=== PATIENT | male | born 1990 | race Caucasian/White ===

== ENCOUNTER 2020-11-23 19:12 | Emergency (ER) | payer MEDICAID, OTHER ==
[~2020-11-23] VITALS: Ht 190.5 cm; Wt 93.9 kg
[2020-11-23] MEDS ORDERED: KETOROLAC TROMETHAMINE INJ 30 MG/ML VIAL ONE (19:49)
[2020-11-23] MEDS ORDERED: ONDANSETRON HCL/PF 4 MG/2 ML VIAL ONE (19:50)
--- NOTE | 2020-11-23 19:58 | NUR ---
pt bibs c/o chest pain 05/25, tachycardic, with fever 102.3 pt came in s/p b12 shot. c/o dehydration and nausea. pt on monitor. phlembotomist at bedside. Addendum: 11/23/20 at 2209 by STORMY Amendment undone in EDM - 11/23/20 at 2210 by STORMY PER VERBAL ORDER, JAMES GIBSON ANOTHER BOLUS LITER OF NORMAL SALINE IV CARRIED OUT
[2020-11-23] MEDS ORDERED: IV NS 0.9% 1,000 ML BAG IV ONE (20:00)
[2020-11-23] MEDS ORDERED: ONDANSETRON HCL/PF 4 MG/2 ML VIAL IVP ONE (20:00)
[2020-11-23] MEDS ORDERED: KETOROLAC TROMETHAMINE INJ 30 MG/ML VIAL IV ONE (20:00)
--- NOTE | 2020-11-23 20:15 | NUR ---
iv line established. left hand #22 iv fluids running as ordered.
[2020-11-23 20:22] LABS: BASOPHILS % (AUTO) 0.1 % (0.0-2.0); EOSINOPHILS % (AUTO) 0.6 % (0.0-6.0); HEMATOCRIT 46 % (39-51); HEMOGLOBIN 16.4 g/dL (13.5-17.5); LYMPHOCYTES # (AUTO) 0.5 K/uL (0.8-4.8); LYMPHOCYTES % (AUTO) 7.7 % (20.0-44.0); MEAN CORPUSCULAR HGB CONC 36 g/dl (31.0-36.0); MEAN CORPUSCULAR VOLUME 91 fL (80-96); MONOCYTES # (AUTO) 0.6 K/uL (0.1-1.30); MONOCYTES % (AUTO) 8.7 % (2.0-12.0); NEUTROPHILS # (AUTO) 5.5 K/uL (1.8-8.9); NEUTROPHILS % (AUTO) 82.9 % (43.0-81.0); PLATELET COUNT (AUTO) 165 K/uL (150-450); RED BLOOD CELL COUNT(AUTO) 5.05 MIL/uL (4.5-6.0); WHITE BLOOD COUNT (AUTO) 6.6 K/uL (4.3-11.0)
[2020-11-23] MEDS ORDERED: ACETAMINOPHEN ES 500 MG TABLET PO ONE (20:30)
[2020-11-23] MEDS ORDERED: ACETAMINOPHEN ES 500 MG TABLET ONE (20:31)
--- NOTE | 2020-11-23 20:37 | NUR ---
all medications administered as ordered
[2020-11-23 20:53] LABS: CALCIUM, SERUM 9.3 mg/dL (8.5-10.1); CARBON DIOXIDE 24 mmol/L (21-32); CHLORIDE 101 mmol/L (98-107); CREATININE 1.4 mg/dL (0.6-1.3); GLUCOSE 108 mg/dL (74-106); POTASSIUM 3.1 mmol/L (3.5-5.1); SODIUM SERUM 138 mmol/L (136-145); UREA NITROGEN, BLOOD 13 mg/dL (7-18)
--- NOTE | 2020-11-23 20:59 | NUR ---
PATIENT UNABLE TO PROVIDE URINE SAMPLE AT THIS TIME.
[2020-11-23 21:00] LABS: ALANINE AMINOTRANSFERASE 32 U/L (12-78); ALBUMIN 4.1 g/dL (3.4-5.0); ALKALINE PHOSPHATASE 77 U/L (46-116); ASPARTATE AMINOTRANSFERASE 55 U/L (15-37); BILIRUBIN,DIRECT 0.2 mg/dL (0.0-0.2); BILIRUBIN,TOTAL 1.1 mg/dL (0.2-1.0); LIPASE 185 U/L (73-393); TOTAL PROTEIN, SERUM 7.4 g/dL (6.4-8.2)
[2020-11-23 21:01] LABS: ALCOHOL, BLOOD < 3 mg/dL (0-0)
[2020-11-23] MEDS ORDERED: POTASSIUM CHLORIDE 20 MEQ TAB.PRT.SR PO ONE ×2 (21:15→21:30)
--- NOTE | 2020-11-23 21:35 | NUR ---
FLOUR BROKER AT BEDSIDE.
[2020-11-23 21:47] LABS: THYROID STIMULATING HORMONE 1.095 uIU/mL (0.358-3.74)
[2020-11-23 22:04] LABS: BILIRUBIN,URINE Negative (NEGATIVE); COLOR,URINE YELLOW (YELLOW); LEUKOCYTE ESTERASE ,URINE Negative (NEGATIVE); NITRITE, URINE Negative (NEGATIVE); PH,URINE 7.5 (5.0-8.0); PROTEIN,URINE Negative (NEGATIVE); UGLUCOSE Negative (NEGATIVE); UROBILINOGEN,URINE 0.2 EU/dL (0.2)
--- NOTE | 2020-11-23 22:10 | NUR ---
PER VERBAL ORDER, JAMES UMANZOR ADMIN ANOTHER BOLUS LITER OF NORMAL SALINE IV CARRIED OUT
[2020-11-23 22:20] LABS: BACTERIA,URINE Rare /HPF (None Seen); RBC,URINE NONE SEEN /HPF (0-2); SQUAMOUS EPITHELIAL CELL,UR Few /HPF (None Seen); WBC,URINE NONE SEEN /HPF (0-3)
[2020-11-23] MEDS ORDERED: IBUP-1955 PO (23:05)
[2020-11-23] MEDS ORDERED: IV NS 0.9% 1,000 ML IV ONE (23:30)
--- NOTE | 2020-11-23 23:33 | NUR ---
PATIENT DISCHARGE INSTRUCTIONS GIVEN. IV TO RIGHT HAND REMOVED. NO FURTHER QUESTIONS ASKED.
[2020-11-24 00:02] VITALS: BP 112/64
== END 2020-11-24 00:12 | disposition home or self-care (01) ==
LOC: ER 19:12
DX: R07.9 Chest pain, unspecified (principal); R50.9 Fever, unspecified; Z20.822 Contact with and (suspected) exposure to COVID-19; E87.6 Hypokalemia; R00.0 Tachycardia, unspecified; Z88.1 Allergy status to other antibiotic agents; Z88.0 Allergy status to penicillin; E86.0 Dehydration; R03.0 Elevated blood-pressure reading, without diagnosis of hypertension
CPT/HCPCS: 36415; 71045; 80048; 80076; 80307; 80320; 81001; 83690; 83735; 84443; 84484; 85025; 85730; 87426; 87804; 93005; 96361; 96374; 96375; 99285; C9803; J1885; J2405; J7030 ×2; G0480